=== PATIENT | female | born 1955 | race Caucasian/White ===

== ENCOUNTER → 2017-09-16 | Outpatient (CLI) | payer MEDICARE, MEDICAID ==
--- NOTE | 2017-09-16 13:43 | WOMENS IMAGING REPORT ---
EXAM DESCRIPTION: BILAT SCREENING MAMMO W/CAD COMPLETED DATE/TIME: 09/16/2017 10:18 am REASON FOR STUDY: SCREENING MAMMO Z12.31 ENCNTR SCREEN MAMMOGRAM FOR MALIGNANT NEOPLASM OF SHUN COMPARISON: 2011 to 2015 TECHNIQUE: Standard craniocaudal and mediolateral oblique views of each breast recorded using digita l acquisition. LIMITATIONS: None. FINDINGS: RIGHT BREAST MASSES: No suspicious masses. CALCIFICATIONS: No new or suspicious calcifications. ARCHITECTURAL DISTORTION: None. DEVELOPING DENSITY: None. ASYMMETRY: None noted. OTHER: No other significant findings. LEFT BREAST MASSES: No suspicious masses. CALCIFICATIONS: No new or suspicious calcifications. ARCHITECTURAL DISTORTION: None. DEVELOPING DENSITY: Developing density seen only on the CC view lateral 8.5 cm from the nipple ASYMMETRY: None noted. OTHER: No other significant findings. Read with the assistance of CAD. .[facility] - R2 Cenova Version 1.3 .[facility] Imaging - R2 Cenova Version 1.3 .[facility] Imaging - R2 Cenova Version 2.4 .[facility] - R2 Cenova Version 2.4 .[facility] - R2 Small Business Representative Version 9.2 IMPRESSION: Developing density in the left breast BREAST DENSITY: b. There are scattered areas of fibroglandular density. BIRAD: 0 Incomplete: Needs Additional Imaging Evaluation and/or prior Mammograms for Comparison. RECOMMENDATION: RECOMMENDED FOLLOW-UP: Spot compression with ultrasound if indicated. The patient will be contacted for additional imaging. COMMENT: The patient has been notified of the results by letter per SA requirements. Additional no tification policies are in place for contacting patient with suspicious or incomplete findings. Quality ID #225: The [employer] recommends an annual screening mammogram for women aged 40 years or over. This facility utilizes a reminder system to ensure that all patients receive reminder letters, and/or direct phone calls for appointments. This includes reminders for routine scr eening mammograms, diagnostic mammograms, or other Breast Imaging Interventions when appropriate. Th is patient will be placed in the appropriate reminder system. The [employer] (ACR) has developed recommendations for screening MRI of the breast s in certain patient populations, to be used in conjunction with mammography. Breast MRI surveillanc e may be appropriate for women with more than 20% lifetime risk of developing breast cancer as deter mined by genetic testing, significant family history of the disease, or history of mantle radiation f or Hodgkins Disease. ACR Practice Guidelines 2008. TECHNICAL DOCUMENTATION: FINDING NUMBER: (1) ASSESSMENT: (1) JOB ID: [id number] [employer]- All Rights Reserved
== END ==
LOC: WI 10:00
PROVIDERS: ATTEND Physician Assistant Medical
DX: Z12.31 Encounter for screening mammogram for malignant neoplasm of breast (principal); R92.2 Inconclusive mammogram
CPT/HCPCS: 77067

== ENCOUNTER → 2017-09-23 | Outpatient (CLI) | payer MEDICARE, MEDICAID ==
--- NOTE | 2017-09-23 08:15 | WOMENS IMAGING REPORT ---
EXAM DESCRIPTION: LEFT DIAGNOSTIC MAMMO W/CAD COMPLETED DATE/TIME: 09/23/2017 8:02 am REASON FOR STUDY: LEFT NODULAR DENSITY N63.20 UNSPECIFIED LUMP IN THE LEFT BREAST, UNSPECIFIED QUAD N63.32 UNSPECIFIED LUMP IN AXILLARY TAIL OF THE LEFT BREAST COMPARISON: Multiple since 2011 TECHNIQUE: Cone compression craniocaudal and mediolateral oblique images of the breast recorded with digital acquisition. Left whole breast 90 mediolateral view LIMITATIONS: None. FINDINGS: BREAST: Left MASSES: No suspicious masses. CALCIFICATIONS: No new or suspicious calcifications. ARCHITECTURAL DISTORTION: None. DEVELOPING DENSITY: None. ASYMMETRY: None noted. OTHER: No other significant findings. Read with the assistance of CAD. .[facility] - R2 Cenova Version 1.3 .[facility] Imaging - R2 Cenova Version 1.3 .[facility] Imaging - R2 Cenova Version 2.4 .[facility] - R2 Cenova Version 2.4 .[facility] - R2 Steam Fitter Supervisor Version 9.2 IMPRESSION: No mammographic evidence for malignancy left breast BREAST DENSITY: b. There are scattered areas of fibroglandular density. BIRAD: 1 Negative. RECOMMENDATION: RECOMMENDED FOLLOW UP: Please continue yearly bilateral screening in August 2017. Please consider bilateral screening tomosynthesis SPECIFIC INTERVENTION/IMAGING/CONSULTATION RECOMMENDED:No additional intervention/ imaging/consultati on needed at this time. COMMUNICATION:Patient notified by letter COMMENT: The patient has been notified of the results by letter per SA requirements. Additional no tification policies are in place for contacting patient with suspicious or incomplete findings. Quality ID #225: The [employer] recommends an annual screening mammogram for women aged 40 years or over. This facility utilizes a reminder system to ensure that all patients receive reminder letters, and/or direct phone calls for appointments. This includes reminders for routine scr eening mammograms, diagnostic mammograms, or other Breast Imaging Interventions when appropriate. Th is patient will be placed in the appropriate reminder system. The [employer] (ACR) has developed recommendations for screening MRI of the breast s in certain patient populations, to be used in conjunction with mammography. Breast MRI surveillanc e may be appropriate for women with more than 20% lifetime risk of developing breast cancer as deter mined by genetic testing, significant family history of the disease, or history of mantle radiation f or Hodgkins Disease. ACR Practice Guidelines 2008. TECHNICAL DOCUMENTATION: FINDING NUMBER: (1) ASSESSMENT: (1) JOB ID: [id number] [employer]- All Rights Reserved Reading location - IP/workstation name: [email or web address]
== END ==
LOC: WI 07:40
PROVIDERS: ATTEND Physician Assistant Medical
DX: N63.32 Unspecified lump in axillary tail of the left breast (principal)

== ENCOUNTER → 2017-10-20 | Outpatient (CLI) | payer MEDICARE, MEDICAID ==
--- NOTE | 2017-10-20 10:31 | RADIOLOGY REPORT (SQ) ---
EXAM DESCRIPTION: U/S ABDOMEN COMPLETE W/O DOP COMPLETED DATE/TIME: 10/20/2017 9:58 am REASON FOR STUDY: LIVER FUNCTION TEST ABNORMALITY M54.2 CERVICALGIA R94.5 ABNORMAL RESULTS OF LIVE R FUNCTION STUDIES COMPARISON: None. TECHNIQUE: Dynamic and static grayscale images acquired of the abdomen and recorded on PACS. Additio nal selected color Doppler and spectral images recorded. LIMITATIONS: None. FINDINGS: PANCREAS: No masses. Visualized pancreatic duct normal caliber. LIVER: Upper normal in size. No masses. Echotexture normal. LIVER VASCULATURE: Normal directional flow of the main portal vein and hepatic veins. GALLBLADDER: Surgically absent. ULTRASOUND-DETECTED BLANCO'S SIGN: Negative. INTRAHEPATIC DUCTS AND COMMON DUCT: CBD and intrahepatic ducts normal caliber. No filling defects. INFERIOR VENA CAVA: Normal flow. AORTA: No aneurysm. RIGHT KIDNEY: Normal size. Normal echogenicity. No solid or suspicious masses. No hydronephros is. No calcifications. LEFT KIDNEY: Normal size. Normal echogenicity. No solid or suspicious masses. No hydronephrosi s. No calcifications. SPLEEN: Normal size. No solid masses. PERITONEAL AND PLEURAL SPACES: No ascites or effusions. OTHER: No other significant finding. IMPRESSION: Negative abdominal ultrasound status post cholecystectomy. TECHNICAL DOCUMENTATION: JOB ID: [id number] [employer]- All Rights Reserved Reading location - IP/workstation name: [email or web address]
--- NOTE | 2017-10-20 10:31 | RADIOLOGY REPORT (SQ) ---
EXAM DESCRIPTION: MRI CERVICAL SPINE WITHOUT COMPLETED DATE/TIME: 10/20/2017 9:18 am REASON FOR STUDY: NECK PAIN M54.2 CERVICALGIA R94.5 ABNORMAL RESULTS OF LIVER FUNCTION STUDIES COMPARISON: None. TECHNIQUE: Sagittal and Axial imaging includes T1, T2, STIR and gradient echo sequences. LIMITATIONS: Patient motion. FINDINGS: ALIGNMENT: Slight anterolisthesis of C7 relative to T1. VERTEBRAE: Intact. BONE MARROW: Normal. No marrow replacement or reactive changes. DISCS: Desiccation multiple levels. HARDWARE: None in the spine. CORD AND BASE OF BRAIN: Normal in size and signal intensity. SOFT TISSUES: No soft tissue masses. C1-C2: No significant spinal stenosis. C2-C3: No significant spinal stenosis or exit foraminal stenosis. C3-C4: Mild neural foraminal narrowing bilaterally due to disc osteophyte complex. C4-C5: Mild spinal stenosis. Mild neural foraminal narrowing bilaterally. C5-C6: Mild spinal stenosis. Moderate neural foraminal narrowing bilaterally. C6-C7: Mild spinal stenosis. Moderate -severe neural foraminal narrowing bilaterally. C7-T1: No significant spinal stenosis or exit foraminal stenosis. UPPER THORACIC: Incompletely imaged. No significant spinal stenosis or exit foraminal stenosis. OTHER: No other significant finding. IMPRESSION: Mild spinal stenosis. Varying degrees of neural foraminal stenosis. TECHNICAL DOCUMENTATION: JOB ID: [id number] [employer]- All Rights Reserved Reading location - IP/workstation name: [email or web address]
== END ==
LOC: RAD 08:31
PROVIDERS: ATTEND Physician Assistant
DX: M54.2 Cervicalgia (principal); M48.02 Spinal stenosis, cervical region; R94.5 Abnormal results of liver function studies
CPT/HCPCS: 72141; 76700

== ENCOUNTER → 2017-12-26 | Outpatient (CLI) | payer MEDICARE, MEDICAID ==
[2017-12-26 13:15] LABS: HEMATOCRIT 40.1 % (36.0-47.0); HEMOGLOBIN 13.4 g/dL (12.0-15.5); MEAN CORPUSCULAR HEMOGLOBIN 32.7 pg (27.0-33.4); MEAN CORPUSCULAR HGB CONC 33.3 g/dL (32.0-36.0); MEAN CORPUSCULAR VOLUME 98 fl (80-97); PLATELET COUNT 285 10^3/uL (150-450); RED BLOOD COUNT 4.09 10^6/uL (3.72-5.28); RED CELL DISTRIBUTION WIDTH 13.3 % (11.5-14.0); WHITE BLOOD COUNT 7.6 10^3/uL (4.0-10.5)
[2017-12-26 13:38] LABS: ALANINE AMINOTRANSFERASE 42 U/L (9-52); ALBUMIN 4.6 g/dL (3.5-5.0); ALKALINE PHOSPHATASE 62 U/L (38-126); ANION GAP 14 (5-19); ASPARTATE AMINO TRANSFERASE 41 U/L (14-36); BILIRUBIN,TOTAL 0.2 mg/dL (0.2-1.3); BLOOD UREA NITROGEN 17 mg/dL (7-20); CALCIUM 9.9 mg/dL (8.4-10.2); CARBON DIOXIDE 26 mmol/L (22-30); CHLORIDE 105 mmol/L (98-107); GLUCOSE 99 mg/dL (75-110); POTASSIUM 4.5 mmol/L (3.6-5.0); SODIUM 144.5 mmol/L (137-145); TOTAL PROTEIN 7.2 g/dL (6.3-8.2)
[2017-12-26 13:49] LABS: BILIRUBIN,DIRECT 0.2 mg/dL (0.0-0.4); C-REACTIVE PROTEIN < 5.0 mg/L (<10.0)
--- NOTE | 2017-12-26 14:44 | RADIOLOGY REPORT (SQ) ---
EXAM DESCRIPTION: CT ABD/PELVIS WITH IV ORAL COMPLETED DATE/TIME: 12/26/2017 2:25 pm REASON FOR STUDY: GENERALIZED ABDOMINAL PAIN R10.84 GENERALIZED ABDOMINAL PAIN COMPARISON: CT abdomen pelvis 10/06/2013 Abdominal ultrasound 10/20/2017 TECHNIQUE: CT scan of the abdomen and pelvis performed using helical scanning technique with dynamic intravenous contrast injection. Patient drank oral contrast. Images reviewed with lung, soft tissue , and bone windows. Reconstructed coronal and sagittal MPR images reviewed. Delayed images for evalua tion of the urinary system also acquired. All images stored on PACS. All CT scanners at this facility use dose modulation, iterative reconstruction, and/or weight based d osing when appropriate to reduce radiation dose to as low as reasonably achievable (ALARA). [facility]: Dose Right [facility]: CareDose [facility]: Dose Right [facility]: Teradose 4D [facility]: [employer] CONTRAST TYPE AND DOSE: contrast/concentration: Isovue 370.00 mg/ml; Total Contrast Delivered: 79.0 ml; Total Saline Delivered: 68.0 ml RENAL FUNCTION: Creatinine 0.81 RADIATION DOSE: CT Rad equipment meets quality standard of care and radiation dose reduction techniq ues were employed. CTDIvol: 13.5 - 15.5 mGy. DLP: 1372 mGy-cm.. LIMITATIONS: None. FINDINGS: LOWER CHEST: No significant findings. No nodules or infiltrates. LIVER: Normal size. No masses. No dilated ducts. SPLEEN: Normal size. No focal lesions. PANCREAS: No masses. No significant calcifications. No adjacent inflammation or peripancreatic fluid collections. Pancreatic duct not dilated. GALLBLADDER: Surgically absent ADRENAL GLANDS: No significant masses or asymmetry. RIGHT KIDNEY AND URETER: No solid masses. No significant calcifications. No hydronephrosis or hyd roureter. LEFT KIDNEY AND URETER: No solid masses. 2 cm cyst right lower pole kidney. No significant calcific ations. No hydronephrosis or hydroureter. AORTA AND VESSELS: No aneurysm. No dissection. Renal arteries, SMA, celiac without stenosis. RETROPERITONEUM: No retroperitoneal adenopathy, hemorrhage or masses. BOWEL AND PERITONEAL CAVITY: No masses or inflammatory changes. No free fluid or peritoneal masses. Patient drank oral contrast. No CT evidence of bowel obstruction. Patient is post gastric bypass. APPENDIX: Surgically absent PELVIS: No mass. No free fluid. Normal bladder. Post hysterectomy ABDOMINAL WALL: No masses. No hernias. BONES: No significant or acute findings. OTHER: No other significant finding. IMPRESSION: Post cholecystectomy, appendectomy, hysterectomy, and gastric bypass No CT evidence of bowel obstruction or free intraperitoneal air or fluid. TECHNICAL DOCUMENTATION: JOB ID: [id number] Quality ID # [id number]: Final reports with documentation of one or more dose reduction techniques (e.g., Au tomated exposure control, adjustment of the mA and/or kV according to patient size, use of iterative reconstruction technique) 2010 [employer]- All Rights Reserved Reading location - IP/workstation name: [email or web address]
== END ==
LOC: RAD 10:06
PROVIDERS: ATTEND Physician Assistant
DX: R10.84 Generalized abdominal pain (principal); R19.7 Diarrhea, unspecified; N28.1 Cyst of kidney, acquired
CPT/HCPCS: 36415; 74177; 80053; 85027; 86140

== ENCOUNTER 2018-06-09 09:16 | Inpatient (IN) | payer MEDICARE, MEDICAID ==
--- NOTE | 2018-06-09 09:35 | ER Document Report ---
ED Blood Pressure Problem - General Chief Complaint: Low Blood Pressure Stated Complaint: BLOOD PRESSURE PROBLEM Notes: 63-year-old female to the emergency department from the dentist office after syncopal episode. Patient reportedly was going to the dentist this morning. Had one prior syncopal episode at home. Hit her head. Was complaining of a headache and neck pain as well. She was not undergoing a procedure at that time. She had just went to the bathroom and collapsed. Her blood pressure was systolics in the 70s. EMS was called. EMS had a blood sugar that was in the 180s. IV established. Bolus of fluid given. Patient still groggy but responsive. Patient is attended to by her daughter at bedside. Patient has multiple medications. TRAVEL OUTSIDE OF THE [place] IN LAST 30 DAYS: No - HPI Patient complains to provider of: Low blood pressure Onset: Just prior to arrival Onset/Duration: Sudden Severity: Moderate Pain Level: 3 Associated symptoms: Syncope, Weakness - Related Data Allergies/Adverse Reactions: acetaminophen [From Darvocet-N 100] Allergy (Mild, Verified 04/10/16 08:30) SLURRED SPEECH,DOUBLE VISION, NAUSEA propoxyphene napsylate [From Darvocet-N 100] Allergy (Mild, Verified 04/10/16 08 :30) SLURRED SPEECH,DOUBLE VISION, NAUSEA clarithromycin [From Biaxin] Adverse Reaction (Verified 04/10/16 08:30) VOMITING peanuts Allergy (Severe, Uncoded 04/10/16 08:30) Anaphylaxis Past Medical History - General Information source: Relative Cannot obtain history due to: Altered mental status - Social History Smoking Status: Smoker,Current Status Unk Frequency of alcohol use: None Drug Abuse: None Lives with: Family Family History: Reviewed & Not Pertinent - Past Medical History Cardiac Medical History: Reports: Hx Hypercholesterolemia - SINCE AGE 20, Hx Hypertension - medicated Denies: Hx Coronary Artery Disease, Hx Heart Attack Pulmonary Medical History: Reports: Hx Bronchitis Denies: Hx Asthma, Hx COPD, Hx Pneumonia Neurological Medical History: Denies: Hx Cerebrovascular Accident, Hx Seizures Endocrine Medical History: Reports: Hx Diabetes Mellitus Type 2 - SINCE 5 YRS GI Medical History: Reports: Hx Gastroesophageal Reflux Disease - 3 YS IS TAKING MED. Denies: Hx Hepatitis, Hx Hiatal Hernia, Hx Ulcer Musculoskeletal Medical History: Reports Hx Arthritis Psychiatric Medical History: Reports: Hx Anxiety - STARTED 30 YS AGO, Hx Depression - DX 20 YS AGO/RECEIVING MED ATTENTION Infectious Medical History: Denies: Hx Hepatitis Past Surgical History: Reports: Hx Appendectomy, Hx Gynecologic Surgery - augustine salpingoophorectomry, Hx Hysterectomy, Hx Tubal Ligation. Denies: Hx Adenoidectomy, Hx Mastectomy, Hx Open Heart Surgery, Hx Pacemaker - Immunizations Immunizations up to date: Yes Hx Diphtheria, Pertussis, Tetanus Vaccination: Yes - 3yrs Hx Pneumococcal Vaccination: 10/27/11 Review of Systems - Review of Systems -: Yes ROS unobtainable due to patient's medical condition - Altered mental status and patient slow to respond. Physical Exam - Vital signs Vitals: Resp BP Pulse Ox 13 87/54 L 93 06/09/18 09:23 06/09/18 09:23 06/09/18 09:23 Interpretation: Hypotensive - Notes Notes: Slightly pale in appearance - General General appearance: Appears well, Alert - HEENT Head: Normocephalic, Atraumatic Eyes: Normal Pupils: PERRL - Respiratory Respiratory status: No respiratory distress Chest status: Nontender Breath sounds: Normal Chest palpation: Normal - Cardiovascular Rhythm: Regular Heart sounds: Normal auscultation Murmur: No - Abdominal Inspection: Normal Distension: No distension Bowel sounds: Normal Tenderness: Nontender Organomegaly: No organomegaly - Back Back: Normal, Nontender - Extremities General upper extremity: Normal inspection, Nontender, Normal color, Normal ROM , Normal temperature General lower extremity: Normal inspection, Nontender, Normal color, Normal ROM , Normal temperature. No: Franchesca's sign - Neurological Neuro grossly intact: Yes Cognition: Normal Orientation: AAOx4 Sharon Coma Scale Eye Opening: Spontaneous Kyler Coma Scale Verbal: Oriented Sharon Coma Scale Motor: Obeys Commands Kyler Coma Scale Total: 15 Speech: Normal Motor strength normal: LUE, RUE, LLE, RLE Sensory: Normal - Psychological Associated symptoms: Normal affect, Normal mood - Skin Skin Temperature: Warm Skin Moisture: Dry Skin Color: Normal Course - Re-evaluation Re-evalutation: 06/09/18 09:38 At this time patient is hypotensive with systolics in the 80s. Slightly elevated heart rate in the 90s. Giving IV fluids. Will get a head CT, C-spine , labs, chest x-ray and reassess 06/09/18 11:42 At this time labs are fairly unremarkable with exception of the elevated lactate. Repeating lactic acid at this time. Patient does not appear septic however blood cultures have been obtained. Patient seems to be responding to IV fluids. Will have consulted the hospitalist for admission. Will place in the IMCU at this time. - Vital Signs Vital signs: Temp Pulse Resp BP Pulse Ox 17 88/52 L 96 06/09/18 09:36 06/09/18 09:36 06/09/18 09:36 - Laboratory Result Diagrams: 06/09/18 09:29 06/09/18 09:29 Laboratory results interpreted by me: 06/09/18 06/09/18 06/09/18 09:29 09:29 09:29 RBC 3.66 L MCV 100 H Potassium 3.1 L Chloride 110 H Carbon Dioxide 21 L BUN 24 H Est GFR ( Amer) 53 L Est GFR (Non-Af Amer) 44 L Glucose 118 H Lactic Acid 3.8 H Total Protein 6.1 L - EKG Interpretation by Me EKG shows normal: Sinus rhythm, [place], Intervals, QRS Complexes, ST-T Waves Critical Care Note - Critical Care Note Total time excluding time spent on procedures (mins): 60 Comments: Hypotension, altered mental status Discharge - Discharge Clinical Impression: Syncope and collapse Condition: Fair Disposition: ADMITTED INPATIENT Admitting Provider: Hospitalist - Dut Unit Admitted: [facility] Referrals: MIRYAM REIS PA-C [Primary Care Provider] - Follow up as needed
[2018-06-09 09:51] LABS: ABSOLUTE EOSINOPHILS # (AUTO) 0.2 10^3/uL (0.0-0.6); ABSOLUTE LYMPHOCYTES (AUTO) 1.7 10^3/uL (0.5-4.7); ABSOLUTE MONOCYTES (AUTO) 0.5 10^3/uL (0.1-1.4); ABSOLUTE NEUT (AUTO) 3.7 10^3/uL (1.7-8.2); BASOPHILS % (AUTO) 0.2 % (0-2); EOSINOPHILS % (AUTO) 3.4 % (0-6); HEMATOCRIT 36.7 % (36.0-47.0); HEMOGLOBIN 12.1 g/dL (12.0-15.5); LYMPHOCYTES % (AUTO) 27.8 % (13-45); MEAN CORPUSCULAR HEMOGLOBIN 33.1 pg (27.0-33.4); MEAN CORPUSCULAR HGB CONC 33.1 g/dL (32.0-36.0); MEAN CORPUSCULAR VOLUME 100 fl (80-97); MONOCYTES % (AUTO) 7.8 % (3-13); PLATELET COUNT 228 10^3/uL (150-450); RED BLOOD COUNT 3.66 10^6/uL (3.72-5.28); RED CELL DISTRIBUTION WIDTH 13.1 % (11.5-14.0); SEGMENTED NEUTROPHILS % (AUTO) 60.8 % (42-78); TOTAL CELLS COUNTED % (AUTO) 100 %; WHITE BLOOD COUNT 6.1 10^3/uL (4.0-10.5)
--- NOTE | 2018-06-09 10:02 | EKG REPORT ---
SEVERITY:- NORMAL ECG - SINUS RHYTHM : Confirmed by: Jani Ham 09-Jun-2018 10:00:52
[2018-06-09] MEDS ORDERED: NORMAL SALINE 1000 ML 1,000 ML IV ONE (10:04)
--- NOTE | 2018-06-09 10:18 | RADIOLOGY REPORT (SQ) ---
EXAM DESCRIPTION: CHEST SINGLE VIEW COMPLETED DATE/TIME: 06/09/2018 10:00 am REASON FOR STUDY: syncope COMPARISON: AP chest 04/09/2016, 08/06/2013 EXAM PARAMETERS: NUMBER OF VIEWS: One view. TECHNIQUE: Single frontal radiographic view of the chest acquired. RADIATION DOSE: NA LIMITATIONS: None. FINDINGS: LUNGS AND PLEURA: No opacities, masses or pneumothorax. No pleural effusion. MEDIASTINUM AND HILAR STRUCTURES: No masses. Contour normal. HEART AND VASCULAR STRUCTURES: Heart normal in size. Normal vasculature. BONES: No acute findings. HARDWARE: None in the chest. OTHER: No other significant finding. IMPRESSION: NO ACUTE RADIOGRAPHIC FINDING IN THE CHEST. TECHNICAL DOCUMENTATION: JOB ID: [id number] [employer]- All Rights Reserved Reading location - IP/workstation name: [email or web address]
[2018-06-09 10:22] LABS: ALANINE AMINOTRANSFERASE 17 U/L (9-52); ALBUMIN 3.6 g/dL (3.5-5.0); ALKALINE PHOSPHATASE 52 U/L (38-126); ANION GAP 13 (5-19); ASPARTATE AMINO TRANSFERASE 24 U/L (14-36); BILIRUBIN,TOTAL 0.2 mg/dL (0.2-1.3); BLOOD UREA NITROGEN 24 mg/dL (7-20); CALCIUM 8.8 mg/dL (8.4-10.2); CARBON DIOXIDE 21 mmol/L (22-30); CHLORIDE 110 mmol/L (98-107); CREATINE KINASE 37 U/L (30-135); GLUCOSE 118 mg/dL (75-110); POTASSIUM 3.1 mmol/L (3.6-5.0); SODIUM 143.7 mmol/L (137-145); TOTAL PROTEIN 6.1 g/dL (6.3-8.2)
[2018-06-09 10:27] LABS: CREATINE KINASE MB < 0.22 ng/mL (<4.55); TROPONIN I < 0.012 ng/mL
--- NOTE | 2018-06-09 10:53 | RADIOLOGY REPORT (SQ) ---
EXAM DESCRIPTION: CT HEAD WITHOUT COMPLETED DATE/TIME: 06/09/2018 10:42 am REASON FOR STUDY: syncope, head trauma COMPARISON: CT brain 04/09/2016 TECHNIQUE: Axial images acquired through the brain without intravenous contrast. Images reviewed wi th bone, brain and subdural windows. Additional sagittal and coronal reconstructions were generated. Images stored on PACS. All CT scanners at this facility use dose modulation, iterative reconstruction, and/or weight based d osing when appropriate to reduce radiation dose to as low as reasonably achievable (ALARA). [facility]: Dose Right [facility]: CareDose [facility]: Dose Right [facility]: Teradose 4D [facility]: [employer] RADIATION DOSE: CT Rad equipment meets quality standard of care and radiation dose reduction techniq ues were employed. CTDIvol: 53.2 mGy. DLP: 964 mGy-cm. mGy. LIMITATIONS: None. FINDINGS: VENTRICLES: Normal size and contour. CEREBRUM: No masses. No hemorrhage. No midline shift. No evidence for acute infarction. Normal gra y/white matter differentiation. No areas of low density in the white matter. CEREBELLUM: No masses. No hemorrhage. No alteration of density. No evidence for acute infarction. EXTRAAXIAL SPACES: No fluid collections. No masses. ORBITS AND GLOBE: No intra- or extraconal masses. Normal contour of globe without masses. CALVARIUM: No fracture. PARANASAL SINUSES: No fluid or mucosal thickening. SOFT TISSUES: No mass or hematoma. OTHER: No other significant finding. IMPRESSION: NORMAL BRAIN CT WITHOUT CONTRAST. EVIDENCE OF ACUTE STROKE: NO. COMMENT: Quality ID # 436: Final reports with documentation of one or more dose reduction techniques (e.g., Automated exposure control, adjustment of the mA and/or kV according to patient size, use of iterative reconstruction technique) TECHNICAL DOCUMENTATION: JOB ID: [id number] [employer]- All Rights Reserved Reading location - IP/workstation name: [email or web address]
--- NOTE | 2018-06-09 10:56 | RADIOLOGY REPORT (SQ) ---
EXAM DESCRIPTION: CT CERVICAL SPINE WITHOUT COMPLETED DATE/TIME: 06/09/2018 10:42 am REASON FOR STUDY: syncope, fall, neck pain COMPARISON: CT brain same date TECHNIQUE: Axial images acquired through the cervical spine without intravenous contrast. Images re viewed with lung, soft tissue and bone windows. Reconstructed coronal and sagittal MPR images review ed. Images stored on PACS. All CT scanners at this facility use dose modulation, iterative reconstruction, and/or weight based d osing when appropriate to reduce radiation dose to as low as reasonably achievable (ALARA). [facility]: Dose Right [facility]: CareDose [facility]: Dose Right [facility]: Teradose 4D [facility]: [employer] RADIATION DOSE: CT Rad equipment meets quality standard of care and radiation dose reduction techniq ues were employed. CTDIvol: 19.9 mGy. DLP: 357 mGy-cm. mGy. LIMITATIONS: None. FINDINGS: ALIGNMENT: Anatomic. MINERALIZATION: Normal. VERTEBRAL BODIES: No fractures or dislocation. DISCS: No significant disc disease. FACETS, LATERAL MASSES, POSTERIOR ELEMENTS: No fractures. No dislocation. No acute findings. HARDWARE: None in the spine. VISUALIZED RIBS: No fractures. LUNG APICES AND SOFT TISSUES: No significant or acute findings. OTHER: No other significant finding. IMPRESSION: NO ACUTE OR SIGNIFICANT FINDINGS IN THE CERVICAL SPINE. TECHNICAL DOCUMENTATION: JOB ID: [id number] Quality ID # [id number]: Final reports with documentation of one or more dose reduction techniques (e.g., Au tomated exposure control, adjustment of the mA and/or kV according to patient size, use of iterative reconstruction technique) 2010 [employer]- All Rights Reserved Reading location - IP/workstation name: [email or web address]
[2018-06-09 11:31] LABS: APPEARANCE,URINE CLOUDY; BILIRUBIN,URINE NEGATIVE (NEGATIVE); GLUCOSE, URINE NEGATIVE (NEGATIVE); KETONES,URINE NEGATIVE (NEGATIVE); LEUKOCYTE ESTERASE,URINE MODERATE (NEGATIVE); NITRITE,URINE NEGATIVE (NEGATIVE); PROTEIN,URINE NEGATIVE (NEGATIVE); URIC ACID CRYSTALS,URINE FEW /HPF; URINE SPECIFIC GRAVITY 1.011; UROBILINOGEN,URINE NEGATIVE mg/dL (<2.0)
[2018-06-09 11:46] LABS: COLOR,URINE YELLOW
[2018-06-09 12:24] LABS: FREE T4 (FREE THYROXINE) 1.09 ng/dL (0.78-2.19)
[2018-06-09 12:38] LABS: THYROID STIMULATING HORMONE 0.08 uIU/mL (0.47-4.68)
[2018-06-09] MEDS ORDERED: GLUCAGON,HUMAN RECOMB 1 MG INJ SUBCUT PRN (13:04)
[2018-06-09] MEDS ORDERED: DEXTROSE 50%-WATER 25 GM/50 ML DISP.SYRIN IV PRN ×4 (13:04→14:00)
[2018-06-09] MEDS ORDERED: DEXTROSE 40% GEL 15 GM TUBE PO PRN ×4 (13:04→14:00)
[2018-06-09] MEDS ORDERED: ONDANSETRON HCL INJ/PF 4 MG/2 ML SDV IV PRN (13:04)
[2018-06-09 13:06] LABS: URINE AMPHETAMINES SCREEN NEGATIVE; URINE BARBITURATES SCREEN NEGATIVE; URINE BENZODIAZEPINES SCREEN NEGATIVE; URINE MARIJUANA (THC) SCREEN NEGATIVE; URINE METHADONE SCREEN NEGATIVE; URINE PHENCYCLIDINE SCREEN NEGATIVE
[2018-06-09] MEDS ORDERED: IBUPROFEN 600 MG TABLET PO PRN (13:14)
[2018-06-09 13:17] LABS: URINE COCAINE SCREEN NEGATIVE
[2018-06-09] MEDS ORDERED: GLUCAGON,HUMAN RECOMB 1 MG INJ IM PRN (14:00)
[2018-06-09] MEDS ORDERED: INSULIN REG, HUMAN 100 UNIT/ML 3 ML VIAL (PYX) SUBCUT PRN (14:00)
--- NOTE | 2018-06-09 14:09 | PDOC H&P ---
History of Present Illness Admission Date/PCP: 06/09/18 11:54 MIRYAM REIS PA-C Patient complains of: Syncope and collapse History of Present Illness: ZAHIRA GILL is a 63 year old female with a past medical history of hypertension, rheumatoid arthritis, prior syncope, gastric bypass, and diabetes , who presented to the ED via EMS with her daughter due to syncope and collapse at the dentist office. Daughter is a nurse in this hospital and is primary historian as patient is laying comfortably on the bed with her eyes closed. I did speak with the patient and she was able to provide me some history. As per history patient woke up around 2:30 AM this morning and was going to change the channel on her television when she states she fell and then next thing she remembers is waking up in the morning on the floor. She does not recall how long she was there on the floor. She did not tell her daughter anything. This morning her daughter went to the house and found out that she had fallen. She was complaining of pain in the back of her head. They went to the dentist office while at the dentist office patient also became dizzy again and had another fall. Daughter witnessed this fall and states that she never lost consciousness. Patient is not sure whether she lost consciousness in the fall at home. Daughter also tells me that Friday they went out and ate some food and Friday her mother was complaining of diarrhea and not feeling so well. Patient verifies this and states that she had multiple episodes of diarrhea in the last 2 days she has been feeling well and has not been eating or drinking as she normally does. States that prior to falling at the dentist office she felt a little bit dizzy but denied any chest pain, shortness of breath, abdominal pain or nausea or vomiting. Patient denies any fevers/chills, sick contacts, recent travel, change in diet, change in lifestyle or medications within the last 1-2 weeks. Of note in 2015 patient did have a similar syncopal episode but at that time daughter states that she was completely unresponsive for 6 hours tolerated in the ED. Past Medical History Cardiac Medical History: Reports: Hyperlipidema - SINCE AGE 20, Hypertension - medicated Denies: Coronary Artery Disease, Myocardial Infarction Pulmonary Medical History: Reports: Bronchitis Denies: Asthma, Chronic Obstructive Pulmonary Disease (COPD), Pneumonia Neurological Medical History: Reports: Migraine Denies: Seizures Endocrine Medical History: Reports: Diabetes Mellitus Type 2 - SINCE 5 YRS GI Medical History: Reports: Gastroesophageal Reflux Disease - 3 YS IS TAKING MED Denies: Hepatitis, Hiatal Hernia Musculoskeltal Medical History: Reports: Arthritis Psychiatric Medical History: Reports: Depression - DX 20 YS AGO/RECEIVING MED ATTENTION Hematology: Denies: Anemia, Sickle Cell Disease Past Surgical History Past Surgical History: Reports: Appendectomy, Cholecystectomy, Hysterectomy, Tubal Ligation Denies: Adenoidectomy, Amputation, Mastectomy, Pacemaker Social History Information Source: Patient, Relative Lives with: Family Smoking Status: Smoker,Current Status Unk - Advance Directive Resuscitation Status: Full Code Family History Family History: Reviewed & Not Pertinent Parental Family History Reviewed: Yes Children Family History Reviewed: Unknown Sibling(s) Family History Reviewed.: Unknown Medication/Allergy Home Medications: Buspirone HCl 15 mg PO Q6 04/09/16 Cyclobenzaprine HCl 10 mg PO QHS MDD 90 tabs per 45 days 04/09/16 Folic Acid 1 mg PO QPM 04/09/16 Gabapentin 600 mg PO QHS 04/09/16 Levothyroxine Sodium [Synthroid 0.075 mg Tablet] 0.075 mg PO MOTUWETHFRSA@0600 04/09/16 Loratadine [Claritin] 10 mg PO DAILY 04/09/16 Losartan Potassium 25 mg PO DAILY 04/09/16 Metformin HCl [Glucophage] 1,000 mg PO BIDBS 04/09/16 Methotrexate Sodium [Methotrexate] 20 mg PO MO@1000 04/09/16 Paroxetine HCl [Paxil] 40 mg PO DAILY 04/09/16 Simvastatin 20 mg PO QHS 04/09/16 Sulfasalazine 1,000 mg PO Q12 04/09/16 Acetaminophen [Tylenol Extra Strength 500 mg Tablet] 1,000 mg PO Q12HP PRN 06/09 Ascorbic Acid [Vitamin C 500 mg Tablet] 500 mg PO DAILY 06/09/18 Biotin [Nail-Ex 2500 mcg Tablet] 5,000 mg PO DAILY PRN 06/09/18 Calcium Carbonate [Calcium] 600 mg PO NOON 06/09/18 Cyanocobalamin (Vitamin B-12) [Vitamin B-12] 2,500 mcg PO Q48H 06/09/18 Docusate Sodium [Stool Softener] 100 mg PO BID 06/09/18 Ferrous Sulfate [Feosol 325 mg Tablet] 325 mg PO DAILY 06/09/18 Fluticasone Propionate [Flonase Nasal [place] 50 Mcg/[place] 16 gm] 1 spray NAREB DAILY 06/09/18 Frovatriptan Succinate [Frova] 2.5 mg PO DAILYP PRN 06/09/18 Hydrocodone Bit/Acetaminophen [Hydrocodon-Acetaminophen 5-325] 1 tab PO Q6HP PRN 06/09/18 Latanoprost/Pf [Latanoprost 0.005% Eye Drop] 1 drop OU QHS 06/09/18 Levothyroxine Sodium [Synthroid 0.075 mg Tablet] 0.15 mg PO HUNT@0600 06/09/18 Magnesium Oxide,Aspartate,Citr [Triple Magnesium Complex] 400 mg PO DAILY Omeprazole 20 mg PO DAILY 06/09/18 Riboflavin [Vitamin B-2] 400 mg PO DAILY 06/09/18 Topiramate [Trokendi Xr] 200 mg PO DAILY 06/09/18 Ubidecarenone/Vit E Acet [Co Q-10 100 mg Softgel] 1 each PO DAILY 06/09/18 Allergies/Adverse Reactions: acetaminophen [From Darvocet-N 100] Allergy (Mild, Verified 04/10/16 08:30) SLURRED SPEECH,DOUBLE VISION, NAUSEA propoxyphene napsylate [From Darvocet-N 100] Allergy (Mild, Verified 04/10/16 08 :30) SLURRED SPEECH,DOUBLE VISION, NAUSEA clarithromycin [From Biaxin] Adverse Reaction (Verified 04/10/16 08:30) VOMITING peanuts Allergy (Severe, Uncoded 04/10/16 08:30) Anaphylaxis Review of Systems All systems: reviewed and no additional remarkable complaints except as stated Constitutional: PRESENT: fatigue, weakness. ABSENT: chills, fever(s) Ears: ABSENT: hearing changes Nose, Mouth, and Throat: ABSENT: sore throat Cardiovascular: ABSENT: chest pain, edema Gastrointestinal: PRESENT: diarrhea. ABSENT: abdominal pain, nausea, vomiting Neurological: PRESENT: weakness, other - headache Physical Exam Vital Signs: Temp Pulse Resp BP Pulse Ox 13 97/57 L 99 06/09/18 13:11 06/09/18 13:11 06/09/18 13:11 General appearance: PRESENT: no acute distress - laying in bed comfortably Head exam: PRESENT: normocephalic, other - posterior occipital scalp TTP- i do not see any areas of ecchymosis or open wound Eye exam: PRESENT: conjunctival injection, EOMI. ABSENT: scleral icterus Ear exam: PRESENT: normal external ear exam Mouth exam: PRESENT: tongue midline Neck exam: ABSENT: tracheal deviation Respiratory exam: PRESENT: clear to auscultation augustine, symmetrical Cardiovascular exam: PRESENT: +S1, +S2 Pulses: PRESENT: +2 pedal pulses bilateral GI/Abdominal exam: PRESENT: normal bowel sounds, soft. ABSENT: distended, tenderness Extremities exam: ABSENT: pedal edema, +2 edema Neurological exam: PRESENT: awake, oriented to person, oriented to place, oriented to time, oriented to situation, other - CN 2-12 intact but slow to perform tasks, able to perform all tasks but with effort. strength in LE are weak bilateraly. UE strength is intact but weak- better than LE- strength are symmetrical bilaterally on UE and LE. Skin exam: PRESENT: dry, warm Results Impressions: Cervical Spine CT 06/09/18 09:34 IMPRESSION: NO ACUTE OR SIGNIFICANT FINDINGS IN THE CERVICAL SPINE. Chest X-Ray 06/09/18 09:34 IMPRESSION: NO ACUTE RADIOGRAPHIC FINDING IN THE CHEST. Head CT 06/09/18 09:34 IMPRESSION: NORMAL BRAIN CT WITHOUT CONTRAST. EVIDENCE OF ACUTE STROKE: NO. Assessment & Plan - Diagnosis (1) Hypovolemic shock Is this a current diagnosis for this admission?: Yes (2) Syncope and collapse Is this a current diagnosis for this admission?: Yes (3) Rheumatoid arthritis Is this a current diagnosis for this admission?: Yes (4) Essential hypertension Is this a current diagnosis for this admission?: Yes (5) Diabetes mellitus type 2 in nonobese Is this a current diagnosis for this admission?: Yes (6) Chronic pain Is this a current diagnosis for this admission?: Yes (7) History of gastric bypass Is this a current diagnosis for this admission?: Yes (8) Polypharmacy Is this a current diagnosis for this admission?: Yes (9) Depression Is this a current diagnosis for this admission?: Yes - Time Time Spent: Greater than 70 Minutes - Inpatient Certification Based on my medical assessment, after consideration of the patient's comorbidities, presenting symptoms, or acuity I expect that the services needed warrant INPATIENT care.: Yes I certify that my determination is in accordance with my understanding of Medicare's requirements for reasonable and necessary INPATIENT services [42 CFR 412.3e].: Yes Medical Necessity: Significant Comorbidiites Make Outpatient Treatment Too Risky , Need For IV Fluids, Need For Continuous Telemetry Monitoring, Need for Neurological Checks, Risk of Complication if Not Cared For in Hospital - Plan Summary Plan Summary: Hypovolemic shock-her blood pressure on arrival was systolic in the 80s. While she has syncope at the dentist her blood pressure systolic was found to be in the 70s. I think this is primarily hypovolemic and less likely septic or cardiogenic. She has no signs of fevers and her white count is stable. Her chest x-ray is negative. Her urine does not look dirty. We will send off a blood culture and urine cultures. She has received IV fluid boluses in the ED and her blood pressure has come up. While I saw her in the ER her systolic was in the high 90s. I spoke with the daughter at bedside and she tells me her blood pressure usually runs in the 100s but less than 110. She did have some episodes of diarrhea and she told me for the last 2 days she has not been having good oral intake as she was not feeling so well. At this time I will continue with IV fluids. I will also order echo to evaluate her heart for function. Trend troponins. We will also check CPK levels since she had a fall. Syncope and collapse-differential diagnosis of syncope is long-includes but not limited to cardiogenic versus hypovolemic versus septic. At this time given her history and presentation I believe this is more hypovolemic than the other 2. We will start her on IV fluids for hydration. I still need to rule out CVA and cardiac causes. We will get MRI of brain without contrast due to her renal functions. Will trend troponins. Will get echo and ultrasound carotids. We will place her in IMCU for close monitoring on Telemetry. Neurochecks every 4. EKG in a.m. we will keep her n.p.o. for now and have speech evaluate her. We will also get physical therapy evaluation. Essential hypertension-I do not think she needs losartan as medication at this time. As per daughter she runs systolic blood pressure in the 100s and always less than 120. I will hold off on that for now. Also that she has hypovolemic shock with low BP I will hold all her blood pressure medicine. Diabetes-hold metformin and start her on sliding scale insulin. Rheumatoid arthritis-she is on a lot of pain medications plus methotrexate. Since she is n.p.o.-we will hold all her meds. History of gastric bypass-she is on a lot of supplements. Will hold all meds for now until she improves and we can restart as needed. Polypharmacy-she is on a whole lot of medications at home he needs to be reevaluated. Her daughter understands this and agrees. Heparin for DVT prophylaxis Pepcid IV for GI prophylaxis Given her symptoms and presentation she will need greater than 2 midnight stay at this time.
[2018-06-09] MEDS: HEPARIN SOD (PORCINE) 5,000 UNIT/ML 1 ML SYRINGE SUBCUT SCH ×2 (14:58→21:53)
[2018-06-09] MEDS: NORMAL SALINE 1000 ML 1,000 ML IV PRN ×2 (15:15→18:23)
--- NOTE | 2018-06-09 16:54 | RADIOLOGY REPORT (SQ) ---
EXAM DESCRIPTION: MRI HEAD WITHOUT COMPLETED DATE/TIME: 06/09/2018 4:19 pm REASON FOR STUDY: syncope r/o CVA COMPARISON: CT brain 06/09/2018 MRI brain 04/09/2016 TECHNIQUE: Multiplanar imaging includes non-contrasted T1, T2, FLAIR, and diffusion with ADC map seq uences. Images stored on PACS. LIMITATIONS: None. FINDINGS: ANATOMY: No anomalies. Normal vascular flow voids. Pituitary fossa normal. CSF SPACES: Normal in size and contour. No hemorrhage. CEREBRUM: Sulci and gyri normal in size and contour. Normal white matter signal on FLAIR imaging. No evidence of hemorrhage, mass, or extraaxial fluid collection. POSTERIOR FOSSA: No signal alteration. No hemorrhage. No edema, masses or mass effect. Internal alondra tory canals, cerebello-pontine angles, mastoids normal. DIFFUSION IMAGING: Negative for acute or sub-acute infarction. ORBITS: No masses. Globes post cataract surgery bilaterally. PARANASAL SINUSES: No fluid levels. Mucosa normal. OTHER: No other significant finding. IMPRESSION: NORMAL MRI OF THE BRAIN WITHOUT INTRAVENOUS GADOLINIUM CONTRAST. EVIDENCE OF ACUTE STROKE: NO. TECHNICAL DOCUMENTATION: JOB ID: [id number] [employer]- All Rights Reserved Reading location - IP/workstation name: [email or web address]
[2018-06-09] MEDS: ACETAMINOPHEN 325 MG TABLET PO PRN (18:21)
[2018-06-09] MEDS: DOCUSATE SODIUM 100 MG CAPSULE PO SCH (18:21)
[2018-06-09] MEDS: FAMOTIDINE INJ/PF 20 MG/2 ML SDV IV SCH (21:53)
[2018-06-10] MEDS: NORMAL SALINE 1000 ML 1,000 ML IV PRN ×2 (05:53→17:41)
[2018-06-10 06:35] LABS: ABSOLUTE EOSINOPHILS # (AUTO) 0.3 10^3/uL (0.0-0.6); ABSOLUTE LYMPHOCYTES (AUTO) 2.6 10^3/uL (0.5-4.7); ABSOLUTE MONOCYTES (AUTO) 0.4 10^3/uL (0.1-1.4); BASOPHILS % (AUTO) 0.5 % (0-2); EOSINOPHILS % (AUTO) 4.9 % (0-6); HEMATOCRIT 31.8 % (36.0-47.0); HEMOGLOBIN 10.9 g/dL (12.0-15.5); LYMPHOCYTES % (AUTO) 49.3 % (13-45); MEAN CORPUSCULAR HEMOGLOBIN 33.7 pg (27.0-33.4); MEAN CORPUSCULAR HGB CONC 34.2 g/dL (32.0-36.0); MEAN CORPUSCULAR VOLUME 99 fl (80-97); PLATELET COUNT 205 10^3/uL (150-450); RED BLOOD COUNT 3.23 10^6/uL (3.72-5.28); SEGMENTED NEUTROPHILS % (AUTO) 38.3 % (42-78); TOTAL CELLS COUNTED % (AUTO) 100 %; WHITE BLOOD COUNT 5.2 10^3/uL (4.0-10.5)
[2018-06-10] MEDS: HEPARIN SOD (PORCINE) 5,000 UNIT/ML 1 ML SYRINGE SUBCUT SCH ×3 (06:59→21:26)
[2018-06-10] MEDS: ACETAMINOPHEN 325 MG TABLET PO PRN ×2 (06:59→20:11)
[2018-06-10 07:18] LABS: ANION GAP 7 (5-19); BLOOD UREA NITROGEN 12 mg/dL (7-20); CALCIUM 8.4 mg/dL (8.4-10.2); CARBON DIOXIDE 21 mmol/L (22-30); CHLORIDE 113 mmol/L (98-107); CHOLESTEROL 97.92 mg/dL (0-200); GLUCOSE 88 mg/dL (75-110); POTASSIUM 3.9 mmol/L (3.6-5.0); SODIUM 141.2 mmol/L (137-145); TRIGLYCERIDES 113 mg/dL (<150)
--- NOTE | 2018-06-10 07:24 | EKG REPORT ---
SEVERITY:- OTHERWISE NORMAL ECG - SINUS RHYTHM BORDERLINE LEFT AXIS DEVIATION LOW VOLTAGE IN FRONTAL LEADS : Confirmed by: Jani Ham 10-Jun-2018 07:23:05
[2018-06-10 07:28] LABS: DIRECT LDL 57 mg/dL (<100)
[2018-06-10] MEDS: FAMOTIDINE INJ/PF 20 MG/2 ML SDV IV SCH ×2 (09:41→21:26)
[2018-06-10] MEDS: DOCUSATE SODIUM 100 MG CAPSULE PO SCH ×2 (09:41→17:41)
[2018-06-10] MEDS: MAGNESIUM SULFATE/D5W 1 GM/100 ML RTUPB IV SCH ×2 (18:45→20:12)
--- NOTE | 2018-06-10 19:57 | PDOC PROGRESS REPORT ---
Subjective Progress Note for:: 06/10/18 Subjective:: The patient is feeling much better today. She is not confused. She is still quite weak. Reason For Visit: HYPOVOLEMIC SHOCK,SYNCOPE Physical Exam Vital Signs: Temp Pulse Resp BP Pulse Ox 98.5 F 68 16 117/67 95 06/10/18 15:58 06/10/18 15:58 06/10/18 15:58 06/10/18 15:58 06/10/18 15:58 Intake & Output 06/09/18 06/10/18 06/11/18 06:59 06:59 06:59 Intake Total 1613 1360 Output Total 1325 900 Balance 288 460 Weight 67 kg General appearance: PRESENT: no acute distress, cooperative, well-developed Eye exam: PRESENT: conjunctiva pink. ABSENT: scleral icterus Ear exam: PRESENT: normal external ear exam Mouth exam: PRESENT: moist Neck exam: ABSENT: carotid bruit, JVD, lymphadenopathy Respiratory exam: PRESENT: clear to auscultation augustine, symmetrical, unlabored. ABSENT: rales, rhonchi, wheezes Cardiovascular exam: PRESENT: RRR, +S1, +S2 GI/Abdominal exam: PRESENT: normal bowel sounds, soft. ABSENT: distended, firm , tenderness Extremities exam: ABSENT: calf tenderness, pedal edema Musculoskeletal exam: PRESENT: normal inspection Neurological exam: PRESENT: alert, awake, oriented to person, oriented to place , oriented to time, oriented to situation, CN II-XII grossly intact - Except her chronic vision loss. Psychiatric exam: PRESENT: appropriate affect, normal mood. ABSENT: agitated, anxious Skin exam: PRESENT: dry, intact, warm. ABSENT: cyanosis, rash Results Laboratory Results: 06/10/18 05:53 06/10/18 05:53 06/10/18 06/10/18 05:53 05:53 WBC 5.2 RBC 3.23 L Hgb 10.9 L Hct 31.8 L MCV 99 H MCH 33.7 H MCHC 34.2 RDW 13.0 Plt Count 205 Seg Neutrophils % 38.3 L Lymphocytes % 49.3 H Monocytes % 7.0 Eosinophils % 4.9 Basophils % 0.5 Absolute Neutrophils 2.0 Absolute Lymphocytes 2.6 Absolute Monocytes 0.4 Absolute Eosinophils 0.3 Absolute Basophils 0.0 Sodium 141.2 Potassium 3.9 Chloride 113 H Carbon Dioxide 21 L Anion Gap 7 BUN 12 Creatinine 0.61 Est GFR ( Amer) > 60 Est GFR (Non-Af Amer) > 60 Glucose 88 Calcium 8.4 Magnesium 1.5 L Triglycerides 113 Cholesterol 97.92 LDL Cholesterol Direct 57 VLDL Cholesterol 23.0 HDL Cholesterol 43 06/09/18 06/09/18 06/09/18 13:41 13:41 19:28 Creatine Kinase 30 Troponin I < 0.012 < 0.012 06/10/18 01:59 Creatine Kinase Troponin I < 0.012 Impressions: Head MRI 06/09/18 00:00 IMPRESSION: NORMAL MRI OF THE BRAIN WITHOUT INTRAVENOUS GADOLINIUM CONTRAST. EVIDENCE OF ACUTE STROKE: NO. Cervical Spine CT 06/09/18 09:34 IMPRESSION: NO ACUTE OR SIGNIFICANT FINDINGS IN THE CERVICAL SPINE. Chest X-Ray 06/09/18 09:34 IMPRESSION: NO ACUTE RADIOGRAPHIC FINDING IN THE CHEST. Head CT 06/09/18 09:34 IMPRESSION: NORMAL BRAIN CT WITHOUT CONTRAST. EVIDENCE OF ACUTE STROKE: NO. Assessment & Plan - Diagnosis (1) Hypovolemic shock Is this a current diagnosis for this admission?: Yes Plan: The patient's blood pressure has stabilized on IV fluid. She is also taking food and liquids by mouth today. We discussed the importance of staying hydrated. (2) Syncope and collapse Is this a current diagnosis for this admission?: Yes Plan: This was from her poor volume status. She does not feel lightheaded or dizzy. She in fact walked with physical therapy today and felt weak but reported no other symptoms. (3) Diabetes mellitus type 2 in nonobese Is this a current diagnosis for this admission?: Yes Plan: Continue sliding scale coverage. (4) Polypharmacy Is this a current diagnosis for this admission?: Yes Plan: I did discuss this with the patient and especially her daughter. We will need to look at her shins and try and streamline the list somewhat. (5) Hypomagnesemia Is this a current diagnosis for this admission?: Yes Plan: The patient was given intravenous magnesium. I will recheck the magnesium levels tomorrow. (6) Essential hypertension Is this a current diagnosis for this admission?: Yes Plan: The losartan is being held. If the patient would benefit from an DANIEL inhibitor due to her underlying diabetes we can consider a much lower dose of a medication such as lisinopril 2.5 mg daily. - Time Time Spent with patient: 35 or more minutes Medications reviewed and adjusted accordingly: Yes
[2018-06-11] MEDS: NORMAL SALINE 1000 ML 1,000 ML IV PRN (06:10)
[2018-06-11] MEDS: HEPARIN SOD (PORCINE) 5,000 UNIT/ML 1 ML SYRINGE SUBCUT SCH (06:10)
[2018-06-11 06:18] LABS: HEMATOCRIT 30.9 % (36.0-47.0); HEMOGLOBIN 10.5 g/dL (12.0-15.5); MEAN CORPUSCULAR HEMOGLOBIN 33.5 pg (27.0-33.4); MEAN CORPUSCULAR HGB CONC 34.1 g/dL (32.0-36.0); MEAN CORPUSCULAR VOLUME 98 fl (80-97); PLATELET COUNT 197 10^3/uL (150-450); RED BLOOD COUNT 3.14 10^6/uL (3.72-5.28); RED CELL DISTRIBUTION WIDTH 12.9 % (11.5-14.0); WHITE BLOOD COUNT 4.7 10^3/uL (4.0-10.5)
[2018-06-11] MEDS: ACETAMINOPHEN 325 MG TABLET PO PRN (06:22)
[2018-06-11 06:35] LABS: ANION GAP 9 (5-19); BLOOD UREA NITROGEN 9 mg/dL (7-20); CALCIUM 8.5 mg/dL (8.4-10.2); CARBON DIOXIDE 22 mmol/L (22-30); CHLORIDE 112 mmol/L (98-107); GLUCOSE 96 mg/dL (75-110); POTASSIUM 4.2 mmol/L (3.6-5.0); SODIUM 143.3 mmol/L (137-145)
[2018-06-11] MEDS ORDERED: ONDANSETRON HCL INJ/PF 4 MG/2 ML SDV IV PRN (09:30)
[2018-06-11] MEDS ORDERED: FAMOTIDINE 20 MG TABLET PO SCH (10:00)
[2018-06-11] MEDS: DOCUSATE SODIUM 100 MG CAPSULE PO SCH (10:07)
[2018-06-11 11:14] VITALS: BP 103/58
--- NOTE | 2018-06-11 20:21 | PDOC DISCHARGE SUMMARY ---
General - Admit/Disc Date/PCP Admission Date/Primary Care Provider: 06/09/18 11:54 MIRYAM REIS PA-C Discharge Date: 06/11/18 - Discharge Diagnosis (1) Hypovolemic shock Is this a current diagnosis for this admission?: Yes Summary: Patient did very well with fluid resuscitation. She is feeling much better today. Her blood pressures are stable. Condition resolved. (2) Syncope and collapse Is this a current diagnosis for this admission?: Yes Summary: No further evidence of syncope or near syncope after fluid resuscitation. Condition resolved. (3) Diabetes mellitus type 2 in nonobese Is this a current diagnosis for this admission?: Yes Summary: The patient's sugars were stable. She will resume her metformin. With her gastric bypass surgery she has already lost approximately 80 pounds. Continue monitoring of her glucose may reveal the ability to decrease her dose. Follow- up with primary care provider. (4) Polypharmacy Is this a current diagnosis for this admission?: Yes Summary: The patient is on multiple medications and multiple supplements. Some of which are from her gastric bypass surgery. I discussed with the patient and daughter that they should consider consolidating her supplements such as using a B complex vitamin and a multivitamin as opposed to multiple individual supplements. In addition some of the prescription medications can likely be reduced. For instance her blood pressure in fact was low in the losartan was discontinued. She did develop a cough on lisinopril and so her options may be limited. They will discuss this with her primary care provider. (5) Hypomagnesemia Is this a current diagnosis for this admission?: Yes Summary: Serum magnesium was repleted and the patient was discharged with a normal serum magnesium level. (6) Essential hypertension Is this a current diagnosis for this admission?: Yes Summary: As noted above the combination of her marked weight loss and this episode of hypovolemic shock will likely change the overall antihypertensive regimen. See discharge medication list. The patient will also follow-up with her primary care physician. Her daughter is a nurse and has a blood pressure cuff at home and will check her blood pressure regularly. (7) Depression Is this a current diagnosis for this admission?: Yes Summary: Continue BuSpar and Paxil. (8) Rheumatoid arthritis Is this a current diagnosis for this admission?: Yes Summary: Continue methotrexate as an outpatient. Follow-up with rheumatology. - Additional Information Resuscitation Status: Full Code Discharge Diet: Cardiac, Diabetic Discharge Activity: Activity As Tolerated, Balance Activity w/Rest Home Medications: Buspirone HCl 15 mg PO Q6 04/09/16 Cyclobenzaprine HCl 10 mg PO QHS MDD 90 tabs per 45 days 04/09/16 Folic Acid 1 mg PO QPM 04/09/16 Gabapentin 600 mg PO QHS 04/09/16 Levothyroxine Sodium [Synthroid 0.075 mg Tablet] 0.075 mg PO MOTUWETHFRSA@0600 04/09/16 Loratadine [Claritin] 10 mg PO DAILY 04/09/16 Metformin HCl [Glucophage] 1,000 mg PO BIDBS 04/09/16 Methotrexate Sodium [Methotrexate] 20 mg PO MO@1000 04/09/16 Paroxetine HCl [Paxil] 40 mg PO DAILY 04/09/16 Simvastatin 20 mg PO QHS 04/09/16 Sulfasalazine 1,000 mg PO Q12 04/09/16 Acetaminophen [Tylenol Extra Strength 500 mg Tablet] 1,000 mg PO Q12HP PRN 06/09 Ascorbic Acid [Vitamin C 500 mg Tablet] 500 mg PO DAILY 06/09/18 Biotin [Nail-Ex 2500 mcg Tablet] 5,000 mg PO DAILY PRN 06/09/18 Calcium Carbonate [Calcium] 600 mg PO NOON 06/09/18 Cyanocobalamin (Vitamin B-12) [Vitamin B-12] 2,500 mcg PO Q48H 06/09/18 Docusate Sodium [Stool Softener] 100 mg PO BID 06/09/18 Ferrous Sulfate [Feosol 325 mg Tablet] 325 mg PO DAILY 06/09/18 Fluticasone Propionate [Flonase Nasal [place] 50 Mcg/[place] 16 gm] 1 spray NAREB DAILY 06/09/18 Frovatriptan Succinate [Frova] 2.5 mg PO DAILYP PRN 06/09/18 Hydrocodone Bit/Acetaminophen [Hydrocodon-Acetaminophen 5-325] 1 tab PO Q6HP PRN 06/09/18 Latanoprost/Pf [Latanoprost 0.005% Eye Drop] 1 drop OU QHS 06/09/18 Levothyroxine Sodium [Synthroid 0.075 mg Tablet] 0.15 mg PO HNUT@0600 06/09/18 Magnesium Oxide,Aspartate,Citr [Triple Magnesium Complex] 400 mg PO DAILY Omeprazole 20 mg PO DAILY 06/09/18 Riboflavin [Vitamin B-2] 400 mg PO DAILY 06/09/18 Topiramate [Trokendi Xr] 200 mg PO DAILY 06/09/18 Ubidecarenone/Vit E Acet [Co Q-10 100 mg Softgel] 1 each PO DAILY 06/09/18 Docusate Sodium [Colace 100 mg Capsule] 100 mg PO BID capsule 06/11/18 History of Present Illness History of Present Illness: ZAHIRA GILL is a 63 year old female with a past medical history of hypertension, rheumatoid arthritis, gastric bypass, diabetes mellitus type 2 and previous syncopal episode. The patient was in her baseline state of health when she woke up at 2:30 AM on the morning of admission. She went to change the channel on her television and she fell. The next thing she remembers was waking up on the floor. She has no idea of the duration of the episode. At that time she did not report this incident to her daughter. Subsequently the daughter did find out. The patient had a dental appointment later that day. The patient became dizzy and lightheaded with a fall at the dentist office. The daughter reported that the patient has been having diarrhea for several days. Her appetite is been decreased and in general she does not drink a lot of water. Hospital Course Hospital Course: The patient had an unremarkable hospital course. Aggressive fluid resuscitation was the primary therapy and the patient did quite well with this. As noted above antihypertensive medication was held due to the patient's low blood pressure. She in fact was on losartan for renal preservation with her underlying diabetes. She developed a cough with lisinopril thus the change to the angiotensin receptor dylan medication therapy. The patient will hold her losartan. There will be an effort to streamline her medications and supplements due to the significant number of medications. The patient's daughter is going to work on decreasing the supplements and in conjunction with the patient's primary care provider look to wean prescription medications if possible. Physical Exam Vital Signs: Temp Pulse Resp BP Pulse Ox 97.7 F 86 20 103/58 L 99 06/11/18 11:13 06/11/18 11:13 06/11/18 11:13 06/11/18 11:13 06/11/18 11:13 Intake & Output 06/10/18 06/11/18 06/12/18 06:59 06:59 06:59 Intake Total 1613 3040 794 Output Total 1325 2500 Balance 288 540 794 Weight 67 kg 70.5 kg General appearance: PRESENT: no acute distress, cooperative, well-developed, well-nourished Head exam: PRESENT: atraumatic, normocephalic Eye exam: PRESENT: conjunctiva pale, EOMI. ABSENT: scleral icterus Ear exam: PRESENT: normal external ear exam Mouth exam: PRESENT: moist, neck supple Neck exam: PRESENT: full ROM. ABSENT: carotid bruit, JVD, lymphadenopathy Respiratory exam: PRESENT: clear to auscultation augustine, symmetrical, unlabored. ABSENT: rales, rhonchi, stridor, wheezes Cardiovascular exam: PRESENT: RRR, +S1, +S2 GI/Abdominal exam: PRESENT: normal bowel sounds, soft. ABSENT: distended, firm , tenderness Extremities exam: ABSENT: calf tenderness, joint swelling, pedal edema Musculoskeletal exam: PRESENT: normal inspection Neurological exam: PRESENT: alert, awake, oriented to person, oriented to place , oriented to time, oriented to situation Psychiatric exam: PRESENT: appropriate affect, normal mood Focused psych exam: ABSENT: delusional, paranoid, restlessness Skin exam: PRESENT: dry, intact, warm. ABSENT: cyanosis, rash Results Laboratory Results: 06/11/18 05:44 06/11/18 05:44 06/11/18 06/11/18 05:44 05:44 WBC 4.7 RBC 3.14 L Hgb 10.5 L Hct 30.9 L MCV 98 H MCH 33.5 H MCHC 34.1 RDW 12.9 Plt Count 197 Sodium 143.3 Potassium 4.2 Chloride 112 H Carbon Dioxide 22 Anion Gap 9 BUN 9 Creatinine 0.50 L Est GFR ( Amer) > 60 Est GFR (Non-Af Amer) > 60 Glucose 96 Calcium 8.5 Magnesium 1.7 06/09/18 06/09/18 06/09/18 13:41 13:41 19:28 Creatine Kinase 30 Troponin I < 0.012 < 0.012 06/10/18 01:59 Creatine Kinase Troponin I < 0.012 Impressions: Head MRI 06/09/18 00:00 IMPRESSION: NORMAL MRI OF THE BRAIN WITHOUT INTRAVENOUS GADOLINIUM CONTRAST. EVIDENCE OF ACUTE STROKE: NO. Cervical Spine CT 06/09/18 09:34 IMPRESSION: NO ACUTE OR SIGNIFICANT FINDINGS IN THE CERVICAL SPINE. Chest X-Ray 06/09/18 09:34 IMPRESSION: NO ACUTE RADIOGRAPHIC FINDING IN THE CHEST. Head CT 06/09/18 09:34 IMPRESSION: NORMAL BRAIN CT WITHOUT CONTRAST. EVIDENCE OF ACUTE STROKE: NO. Qualifiers - * PATIENT BEING DISCHARGED WITH ANY OF THE FOLLOWING DIAGNOSIS: No Plan Discharge Plan: As above Time Spent: Greater than 30 Minutes
== END 2018-06-11 13:15 | disposition home or self-care (01) | DRG 917 ==
LOC: ER 09:16 → EH 11:54 → 3S 16:32
PROVIDERS: ADMIT Emergency Medicine; ATTEND Emergency Medicine
DX: T50.901A Poisoning by unspecified drugs, medicaments and biological substances, accidental (unintentional), initial encounter (principal); R57.1 Hypovolemic shock; E11.9 Type 2 diabetes mellitus without complications; E83.42 Hypomagnesemia; F32.9 Major depressive disorder, single episode, unspecified; M06.9 Rheumatoid arthritis, unspecified; E78.00 Pure hypercholesterolemia, unspecified; Y92.531 Health care provider office as the place of occurrence of the external cause; I10 Essential (primary) hypertension; G43.909 Migraine, unspecified, not intractable, without status migrainosus; K21.9 Gastro-esophageal reflux disease without esophagitis; M19.90 Unspecified osteoarthritis, unspecified site; F17.210 Nicotine dependence, cigarettes, uncomplicated; G89.29 Other chronic pain; F41.9 Anxiety disorder, unspecified; Z98.84 Bariatric surgery status; Z79.899 Other long term (current) drug therapy; Z79.84 Long term (current) use of oral hypoglycemic drugs; Z90.49 Acquired absence of other specified parts of digestive tract; Z90.710 Acquired absence of both cervix and uterus; Z88.6 Allergy status to analgesic agent; Z88.3 Allergy status to other anti-infective agents; Z91.010 Allergy to peanuts
CPT/HCPCS: 36415; 70450; 70551; 71045; 72125; 80048; 80053; 80061; 80307; 81001; 82550; 82553; 82962; 83605; 83735; 84439; 84443; 84479; 84484; 85025; 85027; 87040; 87086; 87088; 87186; 93005; 93010; 96360; 99285; G8978-GP; G8979-GP; G8987-GO; G8988-GO; J1644; J3475; J7030; S0028

== ENCOUNTER 2018-08-17 09:06 | Day surgery (SDC) | payer MEDICARE, MEDICAID ==
[~2018-08-17 09:06] MED LIST: PROPOFOL INJ 200 MG/20 ML VIAL IV ONE
[2018-08-17 10:41] VITALS: BP 94/55
--- NOTE | 2018-08-17 13:17 | Operative Report ---
Operative Report DATE OF SURGERY: 08/17/18 Operative Report: The risks, benefits and alternatives of the procedure including the risks of bleeding, perforation requiring surgery have been explained to the patient in detail and informed consent is obtained. Patient is brought back to the endoscopy suite and placed in the left, lateral decubital position. Timeout was called. Propofol medication is administered. A rectal examination is done which did not reveal any masses, tears or fissures. An Olympus videoscope was introduced into the patient's rectum. The scope was then carefully advanced all the way to the cecum. The cecum was identified by the usual anatomical landmarks including the ileocecal valve as well as the appendiceal office. Photodocumentation is obtained. The scope was then sequentially pulled back via the rest segments of the colon including the ascending colon, hepatic flexure, transverse colon, splenic flexure, descending colon and finally to the rectosigmoid portions of the colon. Retroflexion maneuver was performed. PREOPERATIVE DIAGNOSIS: Personal history of polyp POSTOPERATIVE DIAGNOSIS: Diverticulosis without any evidence of diverticulitis. Internal hemorrhoids. Small area of possible inflammation/possible sessile poly p status post biopsy OPERATION: Colonoscopy with biopsy SURGEON: EMILEE CLIFFORD ANESTHESIA: LMAC TISSUE REMOVED OR ALTERED: As noted above. COMPLICATIONS: None. ESTIMATED BLOOD LOSS: None. INTRAOPERATIVE FINDINGS: As noted above. PROCEDURE: Patient tolerated the procedure well. No immediate postprocedure complications are noted. Patient discharged in good condition. Discharge date 08/17/2018. Discharge diet: Regular. Discharge activity: Regular. 2-3-week follow-up to discuss findings. Patient is instructed to call the office or proceed to the emergency room should there be any further problems or questions. I will wait on the pathology.
== END 2018-08-17 10:37 | disposition home or self-care (01) ==
LOC: END 09:06
PROVIDERS: ATTEND Internal Medicine Gastroenterology
DX: Z12.11 Encounter for screening for malignant neoplasm of colon (principal); K57.30 Diverticulosis of large intestine without perforation or abscess without bleeding; K64.8 Other hemorrhoids; Z86.010 Personal history of colon polyps; I10 Essential (primary) hypertension; M06.9 Rheumatoid arthritis, unspecified; M19.90 Unspecified osteoarthritis, unspecified site; D64.9 Anemia, unspecified; E03.9 Hypothyroidism, unspecified; E78.5 Hyperlipidemia, unspecified; G47.30 Sleep apnea, unspecified; H54.8 Legal blindness, as defined in USA; Z88.5 Allergy status to narcotic agent; Z79.899 Other long term (current) drug therapy
CPT/HCPCS: 45380; 82962; 88305 ×2; J2704

== ENCOUNTER 2018-11-25 05:30 | Day surgery (SDC) | payer MEDICARE, MEDICAID ==
[2018-11-19 08:30] LABS: HEMATOCRIT 37.9 % (36.0-47.0); HEMOGLOBIN 12.7 g/dL (12.0-15.5); MEAN CORPUSCULAR HEMOGLOBIN 32.2 pg (27.0-33.4); MEAN CORPUSCULAR HGB CONC 33.4 g/dL (32.0-36.0); MEAN CORPUSCULAR VOLUME 97 fl (80-97); PLATELET COUNT 257 10^3/uL (150-450); RED BLOOD COUNT 3.93 10^6/uL (3.72-5.28); RED CELL DISTRIBUTION WIDTH 13.5 % (11.5-14.0); WHITE BLOOD COUNT 5.1 10^3/uL (4.0-10.5)
[2018-11-19 08:59] LABS: ANION GAP 5 (5-19); BLOOD UREA NITROGEN 21 mg/dL (7-20); CALCIUM 9.4 mg/dL (8.4-10.2); CARBON DIOXIDE 24 mmol/L (22-30); CHLORIDE 110 mmol/L (98-107); GLUCOSE 183 mg/dL (75-110); POTASSIUM 4.4 mmol/L (3.6-5.0); SODIUM 139.3 mmol/L (137-145)
--- NOTE | 2018-11-19 12:35 | EKG REPORT ---
SEVERITY:- BORDERLINE ECG - SINUS RHYTHM BORDERLINE LEFT AXIS DEVIATION : Confirmed by: Shawn Jordan MD 19-Nov-2018 12:34:18
[~2018-11-25 05:30] MED LIST changes: +LACTATED RINGERS 1000 ML IV PRN; +LIDOCAINE 0.5% INJ-PF (5 MG/ML) 50 ML SDV SUBCUT PRN; +METRONIDAZOLE 500 MG/NS RTU 500 MG/100 ML RTUPB IV PRN; -PROPOFOL INJ 200 MG/20 ML VIAL IV ONE
[2018-11-25] MEDS ORDERED: METRONIDAZOLE 500 MG/NS RTU 500 MG/100 ML RTUPB IV ONE (05:46)
[2018-11-25] MEDS ORDERED: MIDAZOLAM 2 MG/2 ML INJ ONE (06:40)
[2018-11-25] MEDS ORDERED: FENTANYL CITRATE INJ/PF 100 MCG/2 ML AMPUL ONE (06:40)
[2018-11-25] MEDS ORDERED: ONDANSETRON HCL INJ/PF 4 MG/2 ML SDV ONE (06:40)
[2018-11-25] MEDS ORDERED: PROPOFOL INJ 200 MG/20 ML VIAL IV ONE (06:41)
[2018-11-25] MEDS ORDERED: BUPIVACAINE INJ/PF LIPOSOME/PF 266 MG/20 ML SDV ONE (07:11)
[2018-11-25] MEDS ORDERED: BUPIVACAINE HCL 0.5%-EPI 1:200000 INJ/PF 30 ML VIAL ONE (07:11)
[2018-11-25] MEDS ORDERED: ONDANSETRON HCL INJ/PF 4 MG/2 ML SDV IV PRN (07:51)
[2018-11-25] MEDS ORDERED: MEPERIDINE HCL/PF INJ 25 MG/1 ML DISP.SYRIN IV PRN (07:51)
[2018-11-25] MEDS ORDERED: DIPHENHYDRAMINE HCL 50 MG/ML VIAL IV PRN (07:51)
[2018-11-25] MEDS ORDERED: OXYCODONE-ACETAMINOPHEN 5-325 MG TABLET PO PRN ×3 (07:51→08:43)
[2018-11-25] MEDS ORDERED: PROMETHAZINE HCL INJ 25 MG/1 ML VIAL IV PRN (07:51)
[2018-11-25] MEDS ORDERED: FENTANYL CITRATE INJ/PF 100 MCG/2 ML AMPUL IV PRN ×3 (07:51)
[2018-11-25] MEDS ORDERED: MORPHINE SULFATE 10 MG/ML INJ IV PRN (07:51)
--- NOTE | 2018-11-25 08:43 | Discharge Summary ---
Discharge Summary (SDC) - Discharge Final Diagnosis: hemorrhoids Date of Surgery: 11/25/18 Discharge Date: 11/25/18 Condition: Good Treatment or Instructions: [facility] [address], [place] [address] Hemorrhoid or Anal Surgery Discharge Instructions 1. General Information: a. DO NOT DRIVE a car or operate dangerous machinery for 4-7 days or while taking narcotic prescription pain pills. b. DO NOT consume alcohol, tranquilizers, sleeping medications or any non- prescribed medications for 24 hours unless approved by your doctor or as long as taking narcotic prescription medications. c. DO NOT make important decisions or sign any important papers for the next 24 hours. d. Have a responsible person with you tonight. 2. Activity Restrictions: 2 weeks a. Avoid heavy lifting or straining until you feel more comfortable. b. It is fine to go for walks, up and down steps, ride in a car. 3. Treatment: a. Tomorrow morning begin warm water sitz baths (soaks) with plain water. You may do 3-4 times per day or after bowel movements to help relieve spasm and anahy n. Place a dry gauze or panty liner over the sight to catch drainage and blood to help keep your clothing dry. b. You may use Tucks or other medicated wipes to help clean the area as needed. c. If packing used it will pass spontaneously with bowel function. External dressings and medicated gauze should be removed before sitz baths. 4. Medications: a. You may take the narcotic prescription tablets for pain one tablets every 6 hours. (__Percocet__). b. Stop the narcotic when able since you cannot take it and drive and they cause constipation. You may switch to plain Tylenol, Advil or Aleve as you transition from the narcotic. Many adults find good pain relief with Advil 600- 800 mg three times a day with meals for short courses. This can cause indigestion, ulcers, and kidney problems with long-term use. c. Resume all normal medications unless a change is specified by your doctors. d. Stool softeners are encouraged to help you for 2-4 weeks to maintain a soft stool and avoid more painful bowel movements due to pain medication. Colace is often used. e. A numbing cream may be prescribed, this can be applied after sitz baths around the perianal area before the sight is covered with a gauze pad. f. Constipation is very common after anal surgery and you may take [id number] medications to help stimulate the bowel such as Milk of Magnesia, Senokot tablets, prune juice and drink plenty of water. 5. Diet: a. Begin with clear liquids and if you do well you may then advance to normal foods low in fat and protein at first. Smaller portion size may be mays the first night. b. Acidic (orange juice, tomato), foods high in ruffage (grapes, celery, asparagus) and spicy foods should be avoided for comfort the first 2-3 weeks since they can cause more burning sensation with bowel movements. 6..Follow Up Care: a. Please call the office to schedule a follow up appointment with your doctor for 2 weeks. In the event of any postoperative problems or questions or you may call the office during business hours or the On-Call physician evenings and weekends at [facility]. [facility] [phone] I understand the instructions for my postoperative care as described above and a copy has been given to me. Patient/Significant Other Witness Date Prescriptions: Oxycodone HCl/Acetaminophen [Percocet 5-325 mg Tablet] 1 tab PO ASDIR PRN #20 tab PRN Reason: Referrals: MIRYAM REIS PA-C [Primary Care Provider] - Discharge Diet: As Tolerated Discharge Activity: Balance Activity w/Rest, No Lifting Over 10 Pounds, No Lifting/Push/Pulling, Walk Frequently Report the Following to Your Physician Immediately: Fever over 101 Degrees, Unusual Bleeding, Redness, Swelling, Increased Soreness, Drainage-Foul Smelling
--- NOTE | 2018-11-25 08:51 | Operative Report ---
Operative Report DATE OF SURGERY: 11/25/18 PREOPERATIVE DIAGNOSIS: Grade 2 internal and external hemorrhoids, symptomatic OPERATION: Examination under anesthesia, 3 compartment open hemorrhoidectomy SURGEON: GUERITA OCHOA 1ST QA TECH: LISA HARVEY ANESTHESIA: Spinal TISSUE REMOVED OR ALTERED: Hemorrhoid in 3 clusters COMPLICATIONS: None ESTIMATED BLOOD LOSS: 50 cc INTRAOPERATIVE FINDINGS: See below PROCEDURE: The patient was seen in the preop holding area, then taken to the main operating room where spinal anesthesia was induced. The patient was placed in the prone, jackknife position, buttocks spread and taped widely. The buttock was then prepped and draped in sterile fashion. Surgical plan surgical timeout were conducted. The findings were significant for circumferential hemorrhoids external and internal, mild to moderate, decompressed. We dilated up the anal canal to admit two adult fingers. I then anesthetized the perianal area with quarter percent Marcaine. I inserted the short bullet anoscope, and appreciated the pathoanatomy. The most prominent hemorrhoids were in the left anterior, mid anterior and right anterior positions. We approached the left anterior and lateral hemorrhoid first. A 4-0 chromic sutures placed at the apex of the hemorrhoid several centimeters above the dentate line. The hemorrhoid was excised in elliptical fashion, elevating the skin and mucosa along the anal canal to allow exposure and extirpation of additional venous tissue. There was some arterial bleeding at the apex of the hemorrhoidectomy site as was oversewn with a 4-0 chromic suture. The mucosal skin defect was closed with the running 4-0 chromic suture. Gentle compression was used to control any residual bleeding. We now approached the right lateral hemorrhoid. Was removed in a similar fashion. All specimens sent in the same container as hemorrhoids. Lastly we performed the third hemorrhoidectomy in the mid anterior position. Again this was executed in a similar fashion, with the mucosa and skin defect closed with a 4-0 chromic suture in a running fashion. I was of the opinion that a 3 compartment hemorrhoidectomy was sufficient in this lady; we did not perform a fourth hemorrhoidectomy in the posterior position; the hemorrhoidal tissue in this area was we placed a rolled Gelfoam in the anal canal, and anesthetized the perianal tissue with a full-strength Exparel. Patient tolerated procedure well, rolled in the supine position, taken to recovery in stable condition.
[2018-11-25 11:30] VITALS: BP 110/60
== END 2018-11-25 11:10 | disposition home or self-care (01) ==
LOC: OROUT 05:30
PROVIDERS: ATTEND Surgery
DX: K64.8 Other hemorrhoids (principal); K64.4 Residual hemorrhoidal skin tags
CPT/HCPCS: 36415; 82962; 85027; 80048; 88304 ×2; 93005; 93010; 46260; J2250; J3490; J3010; J2405; J2704; C9290; 902

== ENCOUNTER → 2019-07-01 | Outpatient (CLI) | payer MEDICARE, MEDICAID ==
--- NOTE | 2019-07-02 16:51 | WOMENS IMAGING REPORT ---
EXAM DESCRIPTION: 3D SCREENING MAMMO BILAT COMPLETED DATE/TIME: 07/01/2019 9:39 am REASON FOR STUDY: Z12.31 SCREENING MAMMO Z12.31 ENCNTR SCREEN MAMMOGRAM FOR MALIGNANT NEOPLASM OF B RE COMPARISON: 2011 to 2017 EXAM PARAMETERS: Views: Standard craniocaudal and mediolateral oblique views of each breast recorded using digital acquisition and breast tomosynthesis. Read with the assistance of CAD. .[facility] - [employer] T[employer] Keller Operator Version 9.2 LIMITATIONS: None. FINDINGS: No suspicious masses, suspicious calcifications or architectural distortion. No areas of c oncern. IMPRESSION: NEGATIVE MAMMOGRAM. BIRADS 1. BREAST DENSITY: b. There are scattered areas of fibroglandular density. BIRAD: ASSESSMENT: 1 NEGATIVE RECOMMENDATION: ROUTINE SCREENING COMMENT: The patient has been notified of the results by letter per MQSA requirements. Additional no tification policies are in place for contacting patient with suspicious or incomplete findings. Quality ID #225: The [employer] recommends an annual screening mammogram for women aged 40 years or over. This facility utilizes a reminder system to ensure that all patients receive reminder letters, and/or direct phone calls for appointments. This includes reminders for routine scr eening mammograms, diagnostic mammograms, or other Breast Imaging Interventions when appropriate. Th is patient will be placed in the appropriate reminder system. TECHNICAL DOCUMENTATION: FINDING NUMBER: (1) ASSESSMENT: (1) JOB ID: [id number] [employer]- All Rights Reserved Reading location - IP/workstation name: [email or web address]
== END ==
LOC: WI 09:05
PROVIDERS: ATTEND Physician Assistant
DX: Z12.31 Encounter for screening mammogram for malignant neoplasm of breast (principal)
CPT/HCPCS: 77063; 77067

== ENCOUNTER → 2020-08-14 | Outpatient (CLI) | payer MEDICARE, MEDICAID ==
--- NOTE | 2020-08-15 08:53 | WOMENS IMAGING REPORT ---
EXAM DESCRIPTION: 3D SCREENING MAMMO BILAT IMAGES COMPLETED DATE/TIME: 08/14/2020 9:02 am REASON FOR STUDY: ROUTINE SCREENING MAMMOGRAM Z12.31 Z12.31 ENCNTR SCREEN MAMMOGRAM FOR MALIGNANT N EOPLASM OF SHUN COMPARISON: None. EXAM PARAMETERS: Views: Standard craniocaudal and mediolateral oblique views of each breast recorded using digital acquisition and breast tomosynthesis. Read with the assistance of CAD. .[facility] - [employer] Cup Setter Version 9.2 LIMITATIONS: None. FINDINGS: No suspicious masses, suspicious calcifications or architectural distortion. No areas of c oncern. IMPRESSION: NEGATIVE MAMMOGRAM. BIRADS 1. BREAST DENSITY: b. There are scattered areas of fibroglandular density. BIRAD: ASSESSMENT: 1 NEGATIVE RECOMMENDATION: ROUTINE SCREENING COMMENT: The patient has been notified of the results by letter per MQSA requirements. Additional no tification policies are in place for contacting patient with suspicious or incomplete findings. Quality ID #225: The [employer] recommends an annual screening mammogram for women aged 40 years or over. This facility utilizes a reminder system to ensure that all patients receive reminder letters, and/or direct phone calls for appointments. This includes reminders for routine scr eening mammograms, diagnostic mammograms, or other Breast Imaging Interventions when appropriate. Th is patient will be placed in the appropriate reminder system. TECHNICAL DOCUMENTATION: FINDING NUMBER: (1) ASSESSMENT: (1) JOB ID: [id number] 2010 [employer]- All Rights Reserved Reading location - IP/workstation name: [email or web address]
== END ==
LOC: WI 11:48
PROVIDERS: ATTEND Physician Assistant
DX: Z12.31 Encounter for screening mammogram for malignant neoplasm of breast (principal)
CPT/HCPCS: 77063; 77067